=== PATIENT | male | born 1955 | race Caucasian/White ===

== ENCOUNTER 2017-05-31 17:47 | Emergency (ER) | payer OTHER ==
[~2017-05-31] VITALS: Ht 182.9 cm; Wt 106.6 kg
[~2017-05-31 17:47] MED LIST: ASPI325 PO; ATOR10 PO; CARV25; FISH1000 PO; LOSA50 PO; MICROZIDE12.5 MG PO; Multiple Vitam1 EAC1 PO; NIAC250ER PO; SPIR25 PO
[2017-05-31 19:09] LABS: BASOPHILS ABSOLUTE AUTO 0.03 K/mm3 (0.00-0.23); BASOPHILS PERCENT AUTO 0 % (0-2); EOSINOPHILS ABSOLUTE AUTO 0.19 K/mm3 (0.00-0.68); EOSINOPHILS PERCENT AUTO 3 % (0-6); Hematocrit 45.7 % (37.0-53.0); Hemoglobin 16.1 g/dL (13.5-17.5); IMMATURE GRAN PERCENT AUTO 1 % (0-1); LYMPHOCYTES ABSOLUTE AUTO 1.11 K/mm3 (0.84-5.20); LYMPHOCYTES PERCENT AUTO 16 % (21-46); MONOCYTES ABSOLUTE AUTO 0.52 K/mm3 (0.16-1.47); MONOCYTES PERCENT AUTO 8 % (4-13); Mean Corpuscular HGB 31.2 pg (26.0-34.0); Mean Corpuscular HGB Conc 35.2 g/dL (31.5-36.5); Mean Corpuscular Volume 89 fL (80-100); Mean Platelet Volume 9.6 fL (9.1-12.4); NEUTROPHILS ABSOLUTE AUTO 5.01 K/mm3 (1.96-9.15); NEUTROPHILS PERCENT AUTO 72 % (41-73); Platelet Count 147 K/mm3 (150-400); RDW Coefficient Variation 12.9 % (11.7-14.2); RDW Standard Deviation 41.7 fL (35.1-46.3); Red Blood Cell Count 5.16 M/mm3 (4.30-5.90); White Blood Cell Count 6.96 K/mm3 (4.00-11.30)
[2017-05-31 19:24] LABS: Alanine Aminotransfer (ALT/SGP 90 U/L (12-78); Albumin, Blood 3.8 g/dL (3.4-5.0); Albumin/Globulin Ratio 0.8 (0.8-1.8); Alk Phos 95 U/L (50-136); Anion Gap 8 mmol/L (6-16); Aspartate Aminotrans (AST/SGOT 44 U/L (12-37); Bilirubin, Total 0.5 mg/dL (0.1-1.0); Blood Urea Nitrogen 17 mg/dL (8-24); CO2, Blood 23 mmol/L (21-32); Chloride, Blood 107 mmol/L (98-108); Creatinine, Blood 0.85 mg/dL (0.60-1.20); Globulin, Blood 4.9 g/dL (2.2-4.0); Glomerular Filtration Rate >60 (60-); Glucose, Blood 104 mg/dL (70-99); Potassium, Blood 4.3 mmol/L (3.5-5.5); Sodium, Blood 138 mmol/L (136-145); Total Protein, Blood 8.7 g/dL (6.4-8.2)
[2017-05-31] MEDS ORDERED: Fish Oil 10001000 MG GT (19:49)
[2017-05-31] MEDS ORDERED: CARV6.25 PO (19:49)
[2017-05-31] MEDS ORDERED: ATOR20 PO (19:50)
[2017-05-31] MEDS ORDERED: HYDR1TAB94 PO (19:52)
[2017-05-31] MEDS ORDERED: Cleocin HCl300 MG PO (19:54)
[2017-06-01] MEDS ORDERED: ATOR20 PO (12:14)
[2017-06-01] MEDS ORDERED: GABA300 PO (12:15)
[2017-06-01] MEDS ORDERED: FISH OIL 1,0001 EAC2 PO (12:16)
== END 2017-05-31 21:00 | disposition home or self-care (01) ==
LOC: ER 17:47
PROVIDERS: Physician Assistant
DX: L03.311 Cellulitis of abdominal wall (principal); Z88.0 Allergy status to penicillin; Z79.82 Long term (current) use of aspirin; Z79.899 Other long term (current) drug therapy; Z95.2 Presence of prosthetic heart valve; Z90.49 Acquired absence of other specified parts of digestive tract; Z87.891 Personal history of nicotine dependence
CPT/HCPCS: 80053; 85025; 87070; 87075; 87077; 87186; 87205; 96365; 99283

== ENCOUNTER 2017-06-01 09:25 | Day surgery (SDC) | payer OTHER ==
[~2017-06-01 09:25] MED LIST changes: +ATOR20 PO; +CARV6.25 PO; +Cleocin HCl300 MG PO; +Fish Oil 10001000 MG GT; +HYDR1TAB94 PO
[2017-06-01] MEDS ORDERED: ATOR20 PO (12:14)
[2017-06-01] MEDS ORDERED: GABA300 PO (12:15)
[2017-06-01] MEDS ORDERED: FISH OIL 1,0001 EAC2 PO (12:16)
== END 2017-06-01 12:10 | disposition home or self-care (01) ==
LOC: ATC 09:25
DX: L03.311 Cellulitis of abdominal wall (principal); Z87.891 Personal history of nicotine dependence
CPT/HCPCS: 96365

== ENCOUNTER 2017-06-01 19:46 | Emergency (ER) | payer OTHER ==
[~2017-06-01] VITALS: Ht 182.9 cm; Wt 106.6 kg
[~2017-06-01 19:46] MED LIST changes: +FISH OIL 1,0001 EAC2 PO; +GABA300 PO
== END 2017-06-01 20:38 | disposition home or self-care (01) ==
LOC: ER 19:46
DX: L03.311 Cellulitis of abdominal wall (principal); Z88.0 Allergy status to penicillin; Z79.899 Other long term (current) drug therapy; Z79.82 Long term (current) use of aspirin; Z95.2 Presence of prosthetic heart valve; Z90.49 Acquired absence of other specified parts of digestive tract
CPT/HCPCS: 96365; 99282

== ENCOUNTER 2017-06-02 16:03 | Day surgery (SDC) | payer OTHER | END 2017-06-02 16:54 | disposition home or self-care (01) | LOC: ATC 16:03 | DX: L03.311 Cellulitis of abdominal wall (principal); Z79.899 Other long term (current) drug therapy; Z87.891 Personal history of nicotine dependence; Z88.0 Allergy status to penicillin | CPT/HCPCS: 96365 ==

== ENCOUNTER 2017-08-26 09:41 | Day surgery (SDC) | payer OTHER | END 2017-08-26 23:22 | disposition home or self-care (01) | LOC: US 09:41 | PROC: BW40ZZZ Ultrasonography of Abdomen (ICD-10-PCS; principal; 2017-08-26) | DX: R16.0 Hepatomegaly, not elsewhere classified (principal); B18.2 Chronic viral hepatitis C; K76.9 Liver disease, unspecified; R79.89 Other specified abnormal findings of blood chemistry; N28.1 Cyst of kidney, acquired | CPT/HCPCS: 76700 ==

== ENCOUNTER 2017-09-05 20:40 | Day surgery (SDC) | payer OTHER | END 2017-10-03 23:14 | disposition home or self-care (01) | LOC: US 20:40 | PROC: 0FB13ZX Excision of Right Lobe Liver, Percutaneous Approach, Diagnostic (ICD-10-PCS; principal; 2017-09-05) | DX: B18.2 Chronic viral hepatitis C (principal); K76.9 Liver disease, unspecified; R79.89 Other specified abnormal findings of blood chemistry | CPT/HCPCS: 47000; 76942 ==